=== PATIENT | male | born 1970 | race Caucasian/White ===

== ENCOUNTER 2022-06-26 06:32 | Day surgery (SDC) | payer BC, OTHER ==
[2022-06-26] MEDS ORDERED: Propofol 200 MG/20 ML SDV ONE ×2 (07:25→07:41)
[2022-06-26] MEDS ORDERED: Midazolam 1 MG/ML 2 ML SDV ONE (07:25)
[2022-06-26] MEDS ORDERED: fentaNYL 50 MCG/ML SDV ONE (07:25)
[2022-06-26] MEDS ORDERED: Lactated Ringers 1,000 ML IV SCH (07:30)
[2022-06-26 09:12] VITALS: BP 124/67; PULSE 77
== END 2022-06-26 09:12 | disposition home or self-care (01) ==
LOC: JP.SDS 06:32
PROVIDERS: ATTEND Family Medicine
DX: Z12.11 Encounter for screening for malignant neoplasm of colon (principal); D12.5 Benign neoplasm of sigmoid colon; K31.7 Polyp of stomach and duodenum; K29.60 Other gastritis without bleeding; K21.9 Gastro-esophageal reflux disease without esophagitis; Z79.899 Other long term (current) drug therapy
CPT/HCPCS: 88305; J2250; J2704; J3010; J7120